=== PATIENT | male | born 2000 | race Caucasian/White ===

== ENCOUNTER 2020-06-01 20:33 | Emergency (ER) | payer SELFPAY ==
[2020-06-01 20:34] VITALS: BP 136/72; PULSE 101; RESP 16; TEMP 36.8; O2SAT 100; BMI 28.3
--- NOTE | 2020-06-01 20:46 | ECG_ITS ---
APPROVED REPORT Exam: Resting ECG HR:109 bpm ECG Measurements Heart Rate 109 AXES UT 134 P 54 QRSd 94 QRS 40 QT 322 T 59 QTc 433 Conclusion Sinus tachycardia RSR' or QR pattern in V1 suggests right ventricular conduction delay Borderline ECG Electronically signed by : Juan Manuel Car, 06/02/2020 19:55:10
--- NOTE | 2020-06-01 20:46 | XR_ITS ---
PROCEDURE: XR CHEST 2V CLINICAL HISTORY: chest pain COMPARISON: No exams were available for comparison FINDINGS: The cardiomediastinal silhouette and pulmonary vascularity are within normal limits. The lungs are clear without infiltrates, suspicious nodules, or pleural effusions. No acute bony abnormalities. IMPRESSION: No acute findings. Dictated by: Richi Kenney MD 06/02/2020 05:52 Richi Kenney MD in [place] 06/02/2020 05:52
[2020-06-01 20:54] LABS: Basophils # 0.1 K/mm3 (0-0.2); Basophils % 0.3 % (0.1-2.0); Eosinophils # 0.1 K/mm3 (0.0-0.4); Eosinophils % 0.6 % (0.1-12.0); Hematocrit 47.1 % (42.0-52.0); Hemoglobin 15.7 g/dL (14.1-18.0); Lymphocytes # 2.5 K/mm3 (0.7-4.5); Lymphocytes % 14.4 % (10-50); Mean Corpuscular HGB Conc 33.2 g/dL (31.8-35.4); Mean Corpuscular Hemoglobin 30.7 pg (27.0-31.2); Mean Corpuscular Volume 92.6 fl (80-94); Mean Platelet Volume 8.4 fl (7.4-10.4); Monocytes # 0.9 K/mm3 (0.1-1.0); Neutrophils % 79.7 % (37.0-80.0); Platelet Count 179 K/mm3 (142-424); Red Blood Count 5.09 M/mm3 (4.60-6.20); Red Cell Distribution Width 12.1 % (11.5-17.5); White Blood Count 17.5 K/mm3 (4.5-13.0)
[2020-06-01 21:06] LABS: MANUAL DIFFERENTIAL MANUAL DIFFERENTIAL (MANUAL DIFF)
[2020-06-01 21:14] VITALS: BP 150/64; PULSE 91; RESP 16; O2SAT 98
[2020-06-01 21:19] LABS: Chloride 103 mmol/L (98-107); Potassium 3.4 mmoL/L (3.5-5.1); Sodium 139 mmol/L (136-145)
[2020-06-01 21:22] LABS: Anion Gap 12.4 mEq/L (5-15); Blood Urea Nitrogen 15 mg/dl (9-20); Calcium 9.8 mg/dl (8.4-10.2); Carbon Dioxide 27 mmol/L (22.0-30.0); Creatinine Clearance Estimated 176 mL/min (50-200); Estimated Glomerular Filt Rate 95 ml/min (>60); GFR (African American) 115 ML/MIN (>60); Glucose 116 mg/dl (74-100)
[2020-06-01 21:39] LABS: Troponin I < 0.01 ng/ml (0.00-0.034)
[2020-06-01 21:57] LABS: Coronavirus 19 IgG Antibody Negative (Negative); Coronavirus 19 IgM Antibody Negative (Negative)
[2020-06-01 22:04] VITALS: BP 129/81; PULSE 89; RESP 16; O2SAT 99
[2020-06-01 22:09] LABS: Lymphocytes % 9 % (10-50); Monocytes % 8 % (2-9); Neutrophils % 83 % (42-76); Platelet Estimate Normal; RBC Morphology Normal; Total Cells Counted 100
--- NOTE | 2020-06-01 22:20 | CT_ITS ---
PROCEDURE: CT ANGIO CHEST CLINCIAL INDICATION: chest pain Left-sided chest pain COMPARISON: No exams were available for comparison TECHNIQUE: IV Contrast: 70ML Isovue 370 Axial images obtained with sagittal and coronal reformats. All CT scans at the facility use one or more dose reduction, viz: automated exposure control, ma/kV adjustment per patient size (including targeted exams where dose is matched to indication, i.e. head), or iterative reconstruction technique. FINDINGS: HEART AND MEDIASTINAL STRUCTURES: No evidence of pulmonary embolus aortic aneurysm or aortic dissection. There is soft tissue density in the anterior mediastinum consistent with residual thymic tissue. LUNGS AND PLEURAL SPACES: There are mild atelectatic changes in the right lung base posteriorly BONY STRUCTURES: No acute bony abnormalities apparent. UPPER ABDOMEN: Borderline splenomegaly at 13 cm. ADDITIONAL FINDINGS: No other significant abnormalities. IMPRESSION: 1. No acute finding. No evidence of aortic aneurysm or pulmonary embolus. 2. Minimal right basilar atelectasis. 3. Mildly prominent bilateral axillary lymph nodes nonspecific Dictated by: Richi Kenney MD 06/02/2020 06:14 Richi Kenney MD in [facility] 06/02/2020 06:14
--- NOTE | 2020-06-01 22:24 | HMH.EDCP ---
ED Disposition Clinical Impression: Atypical chest pain Acute bronchitis Qualifiers: Bronchitis organism: unspecified organism Qualified Code(s): J20.9 - Acute bronchitis, unspecified Disposition: Home, Self-Care Condition on Discharge: Good Instructions: DI for Atypical Chest Pain Additional Instructions: fluids and see pcp for follow up Prescriptions: levoFLOXacin [Levaquin 500mg tab] 500 mg PO DAILY #7 tab Transmission Status: Pending to [facility] # predniSONE [Prednisone 20mg Tab] 20 mg PO BID #10 tab Transmission Status: Pending to [facility] # Referrals: Juan Manuel Car MD [Primary Care Provider] - - Critical Care Critical Care Time: No Attestation: On 06/01/20, the high probability of a clinically significant, sudden or life threatening deterioration of the following system(s) required my full and direct attention, intervention and personal management. The time I documented below is in addition to time spent performing reported procedures but includes the following listed in this critical care notation. Medical Decision Making - Medical Records Medical records reviewed: Yes: I reviewed the patient's medical records. - Ozzy Inquiry Pt receiving controlled substance: No Vital Signs: 06/01/20 20:34 06/01/20 21:14 06/01/20 22:04 Temperature 98.2 F Temperature Source Oral Pulse Rate [Left Radial] 101 H 91 H 89 Respiratory Rate 16 16 16 Blood Pressure [Right Arm] 136/72 150/64 H 129/81 Blood Pressure Mean [Right Arm] 93 92 97 Blood Pressure Source [Right Arm] Automatic Cuff Automatic Cuff Automatic Cuff Blood Pressure Position [Right Arm] Sitting Sitting Sitting 02 Sat by Pulse Oximetry 100 98 99 Oxygen Delivery Method Room Air Room Air Room Air 06/01/20 22:30 06/01/20 23:30 Temperature Temperature Source Pulse Rate [Left Radial] 87 86 Respiratory Rate 17 16 Blood Pressure [Right Arm] 125/63 137/70 Blood Pressure Mean [Right Arm] 83 92 Blood Pressure Source [Right Arm] Automatic Cuff Automatic Cuff Blood Pressure Position [Right Arm] Sitting Sitting 02 Sat by Pulse Oximetry 94 L 95 Oxygen Delivery Method Room Air Room Air - Lab Data Lab results reviewed: Yes: I reviewed the patient's lab results. Lab Results 06/01/20 20:38: WBC 17.5 H, RBC 5.09, Hgb 15.7, Hct 47.1, MCV 92.6, MCH 30.7, MCHC 33.2, RDW 12.1, Plt Count 179, MPV 8.4, Neut % (Auto) 79.7, Lymph % (Auto) 14.4, [place] % (Auto) 5.0, Eos % (Auto) 0.6, Baso % (Auto) 0.3, Neut # (Auto) 14.0 H, Lymph # (Auto) 2.5, [place] # (Auto) 0.9, Eos # (Auto) 0.1, Baso # (Auto) 0.1, Total Counted 100, Neutrophils % (Manual) 83 H, Lymphocytes % (Manual) 9 L, Monocytes % (Manual) 8, Platelet Estimate Normal, RBC Morphology Normal 06/01/20 20:38: Sodium 139, Potassium 3.4 L, Chloride 103, Carbon Dioxide 27, Anion Gap 12.4, BUN 15, Creatinine 1.00, Estimated Creat Clear 176, Estimated GFR 95, Est GFR ( Amer) 115, Glucose 116 H, Calcium 9.8, Troponin I < 0.01 06/01/20 20:38: SARS-CoV-2 IgG Ab (Rapid) Negative, SARS-CoV-2 IgM Ab (Rapid) Negative Result diagrams: 06/01/20 20:38 06/01/20 20:38 Orders (Tests/Meds): ED MEDICATIONS Generic Name Dose Route Start Last Admin Trade Name Freq PRN Reason Stop Dose Admin Sodium Chloride 1,000 mls @ 999 mls/hr 06/01/20 21:00 06/01/20 20:51 Sod Chlor 0.9% 1000ml Bag IV 06/01/20 22:00 999 mls/hr .Q1H1M ARI Administration Discontinued Medications Generic Name Dose Route Start Last Admin Trade Name Freq PRN Reason Stop Dose Admin Aspirin 324 mg 06/01/20 20:47 06/01/20 20:51 Aspirin 81mg Chewable Tablet PO 06/01/20 20:48 324 mg ONCE ONE Administration Iopamidol 70 ml 06/01/20 23:59 06/02/20 00:00 Iopamidol-370 (76%);100ml Bottle IV 06/02/20 00:00 70 ml ONCE ONE Administration Ketorolac Tromethamine 30 mg 06/01/20 20:47 06/01/20 20:51 Ketorolac 30mg/Ml Vial IV 06/01/20 20:48 30 mg ONCE ONE Administratio
[2020-06-01 22:30] VITALS: BP 125/63; PULSE 87; RESP 17; O2SAT 94
[2020-06-01 23:30] VITALS: BP 137/70; PULSE 86; RESP 16; O2SAT 95
[2020-06-02 00:29] VITALS: BP 131/82; PULSE 81; RESP 16; TEMP 36.8; O2SAT 98
[2020-06-02 01:08] LABS: Microscopic, Urine URINE MICROSCOPIC (MICROSCOPIC)
[2020-06-02 01:49] LABS: Appearance,Urine CLEAR (Clear); Bilirubin,Urine Negative (Negative); Blood, Urine Negative (Negative); Color,Urine YELLOW (Yellow); Glucose,Urine (UA) Negative (Negative); Ketones,Urine Negative (Negative); Leukocyte Esterase,Urine Negative (Negative); Nitrate,Urine Negative (Negative); Protein,Urine Negative (Negative); Specific Gravity, Urine >= 1.030 (1.005-1.030); Urobilinogen,Urine 0.2 EU/dl (0.2)
[2020-06-02 01:51] LABS: Barbiturates Screen,Urine Negative ng/ml (<200)
[2020-06-02 01:52] LABS: Benzodiazepines Screen,Urine Negative ng/ml (<200)
[2020-06-02 01:53] LABS: Amphetamine/Metha Screen,Urine Negative ng/ml (<1000); Cocaine Screen,Urine Negative ng/ml (<300)
[2020-06-02 01:54] LABS: Methadone Screen,Urine Negative ng/ml (<300)
[2020-06-02 01:55] LABS: Cannabinoid Screen,Urine Negative ng/ml (<50); Opiate Screen,Urine Negative ng/ml (<300)
[2020-06-02 01:56] LABS: Phencyclidine Screen,Urine Negative ng/ml (<25)
[2020-06-02 02:25] LABS: Bacteria,Urine 1+ /lpf
== END 2020-06-02 00:35 | disposition home or self-care (01) ==
PROVIDERS: Emergency Provider Emergency Medicine; PCP Internal Medicine Adolescent Medicine
DX: Z20.828 Contact with and (suspected) exposure to other viral communicable diseases (principal); J20.9 Acute bronchitis, unspecified
CPT/HCPCS: 71046; 71275; 80048; 80305; 81001; 84484; 85007; 85025; 86328; 93005; 96365; 96375; 99284; J2405; Q9967; U0003

== ENCOUNTER → 2020-10-28 11:28 | Outpatient (CLI) | payer BC, OTHER, SELFPAY ==
[2020-10-28 13:18] LABS: Coronavirus 19 IgG Antibody Negative (Negative); Coronavirus 19 IgM Antibody Negative (Negative)
== END ==
PROVIDERS: Visit Provider Surgery
DX: Z01.812 Encounter for preprocedural laboratory examination (principal)
CPT/HCPCS: 36415; 86328

== ENCOUNTER 2020-10-29 05:56 | Day surgery (SDC) | payer BC, OTHER, SELFPAY ==
[2020-10-25 08:18] VITALS: BMI 28.5
[2020-10-29] VITALS (10 sets, daily range): BP systolic 131–149; BP diastolic 64–84; PULSE 53–85; RESP 14–20; TEMP 36.4–43; O2SAT 95–98
--- NOTE | 2020-10-29 07:43 | HMH.ANESCL ---
[facility] Anesthesia Checklist - Patient Identification Patient Identification: Arm Band - Structural Data Admitted From: Home Planned Operative Procedure/s: I&D Pilonidal Cyst Consent for Planned Operative Procedure(s) Verified: Yes Verified Documents: Surgical Consent, History and Physical - NPO Status Verified Time NPO: 00:00 - Additional verifications Anesthesia Reactions: No Hx Blood Transfusions: No Blood Transfusion Reaction: No - Airway Assessment C-Spine Mobility Assessed: Yes (mp2) TMJ Mobility Assessed: Yes Dentition: Good Dentition - Neurological Assessment Level of Consciousness: Awake, Alert - Anesthesia Plan Anesthesia Risk discussed: Yes Anesthesia Plan: Verified ASA Class: II Anesthesia Type: General [facility] History I have reviewed the patient's past medical history: Yes Medical History: Denies:: Cancer, Diabetes Mellitus Type 1, Diabetes Mellitus Type 2, Internal Pacemaker, MRSA, Seizures *Have you ever received a pneumonia vaccine?: Yes *Have you received a flu vaccine this season?: No Other Medical History: Denies: Blood Transfusion Reaction Anesthesia experience/problems:: nac Laterality Cases: Bilateral: Myringotomy (Ear Tubes) Other Surgeries: Yes: No Previous Surgery. No: Pacemaker Amputation: No - *Social History Last grade of school completed: High school graduate Smoking Status: Current every day smoker Tobacco Type: cigarettes # Packs/Day (cigarettes): 1 Alcohol Intake: never Substance Use Type: denies use *Occupational Status:: employed Housing: house Household Members: family *Travel in the last 8 weeks: None Family Hx:: Non-contributory
--- NOTE | 2020-10-29 08:05 | P.OP_ITS ---
Date of procedure: 10/29/20 Pre-op Diagnosis:: Pilonidal cyst Post-op Diagnosis:: Same Procedure performed:: Incision with debridement of pilonidal cyst Surgeon:: Bob Crowell MD USED [employer] MAKE [employer]Y MECHANIC:: Kenneth Coto Anesthesia: GETA Estimated blood loss (mL): 15 Clinical Note:: Patient is a 20-year-old male from [place] who is referred by Peace Henao for pilonidal cyst. Patient has had some problems for 1 to 2 years but he is not sure. He has occasional discharge of pinkish somewhat blood-tinged fluid from the gluteal cleft. No significant tenderness. He does occasionally squeeze the area. Operative findings:: There were several pilonidal sinus openings. The underlying disease did track significantly superiorly. There was underlying purulent granulation tissue with debris and hair present. Operative note:: Patient was taken to the operating room. He was positioned in a supine position. General anesthesia was induced. He was then repositioned in prone jackknife position. The area was prepped and draped in the standard surgical fashion. One of the larger sinus openings which seems to have had some drainage at the inferior portion of the multiple pilonidal sinus openings was probed with a blunt probe. This did track quite a distance superiorly. The overlying skin was incised with electrocautery. There was underlying purulent granulation tissue and debris with hair present. This was debrided with a small curette. To allow for full debridement of the affected tissue the incision was opened more cranially. Additional debris and purulent granulation tissue was encountered. This was debrided. Debrided tissue was sent as specimen. Once the wound was opened and any underlying infected pilonidal tissue debris was removed the wound was thoroughly irrigated with saline. Local anesthetic was infiltrated. The wound was packed with a saline moistened gauze and covered wit h clean dry sterile dressing. Please note the overall size of the wound measured approximately 7 cm long by 3 cm wide and 2 cm in depth. Condition: stable Disposition: PACU Specimens:: Debrided pilonidal tissue Complications:: None immediately apparent
--- NOTE | 2020-10-29 08:09 | HMH.ANESI ---
[facility] Anesthesia Record Part I Intake, IV Amount: 900 Estimated blood loss (mL): 10 Urine output (mL): 0 Blood Pressure: 136/66 SaO2: 95 Pulse Rate: 85 Respiratory Rate: 16 Temperature: 97.6 F Patient is:: Drowsy, Stable Stable to PACU at:: 08:00
--- NOTE | 2020-10-29 12:51 | P.PN_ITS ---
[facility] Anesthesia Record Part II Discharge Time: 08:30 Destination: Surgical Day Care (OP Surgery) PACU nurse assessment reviewed?: Yes Patient Condition:: Good Anesthesia Complications:: None Swallowing reflex intact?: Yes Cyanosis?: No Blood Pressure: 146/82 Pulse Rate: 67 Temperature: 97.6 F Mental Status: Alert & Oriented Pain level:: 0 Nausea and/or vomitting:: None Intake, IV Amount: 0
== END 2020-10-29 09:02 | disposition home or self-care (01) ==
LOC: OR 05:57
PROVIDERS: PCP Nurse Practitioner Family; Visit Provider Surgery
PROC: (CPT 10080; principal; 2020-10-29 07:30)
DX: L05.91 Pilonidal cyst without abscess (principal)
CPT/HCPCS: 10080; 96374; J2405

== ENCOUNTER 2020-10-30 09:05 | Outpatient (CLI) | payer BC, OTHER, SELFPAY | END 2020-10-30 20:35 | disposition home or self-care (01) | LOC: INF 09:23 | PROVIDERS: Visit Provider Surgery | DX: L05.01 Pilonidal cyst with abscess (principal); Z48.01 Encounter for change or removal of surgical wound dressing | CPT/HCPCS: G0463 ==

== ENCOUNTER → 2020-10-30 20:16 | Outpatient (CLI) | payer BC, OTHER, SELFPAY | PROVIDERS: PCP Nurse Practitioner Family; Visit Provider Surgery | DX: L05.01 Pilonidal cyst with abscess (principal); Z48.01 Encounter for change or removal of surgical wound dressing ==

== ENCOUNTER 2020-10-31 08:45 | Outpatient (CLI) | payer BC, OTHER, SELFPAY ==
[2020-10-31 20:29] VITALS: BP 115/62; PULSE 98; RESP 17; TEMP 37.1; O2SAT 95
[2020-10-31 20:49] VITALS: BP 115/62; PULSE 98; RESP 17; TEMP 37.1; O2SAT 95
== END 2020-10-31 20:49 | disposition home or self-care (01) ==
LOC: INF 08:58
PROVIDERS: PCP Nurse Practitioner Family; Visit Provider Surgery
DX: L05.01 Pilonidal cyst with abscess (principal); Z48.01 Encounter for change or removal of surgical wound dressing
CPT/HCPCS: G0463

== ENCOUNTER → 2020-10-31 20:20 | Outpatient (CLI) | payer BC, OTHER, SELFPAY | PROVIDERS: PCP Nurse Practitioner Family; Visit Provider Surgery | DX: L05.01 Pilonidal cyst with abscess (principal) ==

== ENCOUNTER 2020-11-01 09:00 | Outpatient (CLI) | payer BC, OTHER, SELFPAY | END 2020-11-01 20:00 | disposition home or self-care (01) | LOC: INF 16:11 | PROVIDERS: PCP Nurse Practitioner Family; Visit Provider Surgery | DX: L05.01 Pilonidal cyst with abscess (principal); Z48.01 Encounter for change or removal of surgical wound dressing | CPT/HCPCS: G0463 ==

== ENCOUNTER 2020-11-02 08:53 | Outpatient (CLI) | payer BC, OTHER, SELFPAY ==
[2020-11-02 11:10] VITALS: BP 130/68; PULSE 66; RESP 18; O2SAT 97
[2020-11-02 20:28] VITALS: BP 117/49; PULSE 105; RESP 18; TEMP 36.9; O2SAT 97
[2020-11-02 20:48] VITALS: BP 117/49; PULSE 105; RESP 18; TEMP 36.9; O2SAT 97
== END 2020-11-02 20:48 | disposition home or self-care (01) ==
PROVIDERS: PCP Nurse Practitioner Family; Visit Provider Surgery
DX: L05.01 Pilonidal cyst with abscess (principal); Z48.01 Encounter for change or removal of surgical wound dressing
CPT/HCPCS: G0463

== ENCOUNTER 2020-11-05 09:20 | Outpatient (CLI) | payer BC, OTHER, SELFPAY | END 2020-11-05 09:28 | disposition home or self-care (01) | LOC: INF 09:26 | PROVIDERS: Visit Provider Surgery | DX: L05.01 Pilonidal cyst with abscess (principal); Z48.01 Encounter for change or removal of surgical wound dressing | CPT/HCPCS: G0463 ==

== ENCOUNTER 2020-11-06 09:02 | Outpatient (CLI) | payer BC, OTHER, SELFPAY | END 2020-11-06 09:15 | disposition home or self-care (01) | LOC: INF 09:02 | PROVIDERS: PCP Nurse Practitioner Family; Visit Provider Surgery | DX: L05.01 Pilonidal cyst with abscess (principal); Z48.01 Encounter for change or removal of surgical wound dressing | CPT/HCPCS: G0463 ==

== ENCOUNTER 2020-11-07 08:00 | Outpatient (CLI) | payer BC, OTHER, SELFPAY | END 2020-11-07 09:00 | disposition home or self-care (01) | LOC: INF 08:42 | PROVIDERS: Visit Provider Surgery | DX: L05.01 Pilonidal cyst with abscess (principal); Z48.01 Encounter for change or removal of surgical wound dressing | CPT/HCPCS: G0463 ==

== ENCOUNTER 2020-11-08 09:10 | Outpatient (CLI) | payer BC, OTHER, SELFPAY | END 2020-11-08 09:25 | disposition home or self-care (01) | LOC: INF 09:11 | PROVIDERS: Visit Provider Surgery | DX: L05.01 Pilonidal cyst with abscess (principal) | CPT/HCPCS: G0463 ==

== ENCOUNTER → 2020-11-09 10:40 | Outpatient (CLI) | payer BC, OTHER, SELFPAY ==
[2020-11-09 11:59] VITALS: BP 110/45; PULSE 91; RESP 18; TEMP 36.8; O2SAT 99; BMI 28.4
== END ==
PROVIDERS: PCP Nurse Practitioner Family; Visit Provider Surgery
DX: L05.01 Pilonidal cyst with abscess (principal); Z48.01 Encounter for change or removal of surgical wound dressing
CPT/HCPCS: G0463

== ENCOUNTER 2020-11-10 07:57 | Outpatient (CLI) | payer BC, OTHER, SELFPAY ==
[2020-11-10 08:10] VITALS: BP 136/72; PULSE 86; RESP 18; TEMP 37; O2SAT 98
--- NOTE | 2020-11-10 08:20 | PC.NURSE ---
pt prone in bed during dressing change. old packing wet with saline then removed. wound bed irrigated with saline then new wet kerlix was inserted into wound. covered with abd pad and perforated tape. pt tolerated well.
== END 2020-11-10 08:35 | disposition home or self-care (01) ==
PROVIDERS: PCP Nurse Practitioner Family; Visit Provider Surgery
DX: L05.01 Pilonidal cyst with abscess (principal); Z48.01 Encounter for change or removal of surgical wound dressing
CPT/HCPCS: G0463

== ENCOUNTER → 2020-11-12 10:50 | Outpatient (CLI) | payer BC, OTHER, SELFPAY | END | disposition home or self-care (01) | LOC: INF 10:50 | PROVIDERS: Visit Provider Surgery | DX: L05.01 Pilonidal cyst with abscess (principal); Z48.01 Encounter for change or removal of surgical wound dressing | CPT/HCPCS: G0463 ==

== ENCOUNTER 2020-11-13 10:30 | Outpatient (CLI) | payer BC, OTHER, SELFPAY | END 2020-11-13 10:45 | disposition home or self-care (01) | LOC: INF 16:09 | PROVIDERS: Visit Provider Surgery | DX: L05.01 Pilonidal cyst with abscess (principal); Z48.01 Encounter for change or removal of surgical wound dressing | CPT/HCPCS: G0463 ==

== ENCOUNTER 2020-11-14 08:30 | Outpatient (CLI) | payer BC, OTHER, SELFPAY | END 2020-11-14 08:45 | disposition home or self-care (01) | LOC: INF 08:47 | PROVIDERS: Visit Provider Surgery | DX: L05.01 Pilonidal cyst with abscess (principal); Z48.01 Encounter for change or removal of surgical wound dressing | CPT/HCPCS: G0463 ==

== ENCOUNTER 2020-11-15 08:40 | Outpatient (CLI) | payer BC, OTHER, SELFPAY | END 2020-11-15 09:20 | disposition home or self-care (01) | LOC: INF 08:49 | PROVIDERS: Visit Provider Surgery | DX: L05.01 Pilonidal cyst with abscess (principal); Z48.01 Encounter for change or removal of surgical wound dressing | CPT/HCPCS: G0463 ==

== ENCOUNTER → 2020-11-16 10:21 | Outpatient (CLI) | payer BC, OTHER, SELFPAY ==
[2020-11-16 11:14] VITALS: BP 130/71; PULSE 96; RESP 18; TEMP 36.9; O2SAT 97
== END ==
PROVIDERS: PCP Nurse Practitioner Family; Visit Provider Surgery
DX: L05.01 Pilonidal cyst with abscess (principal); Z48.01 Encounter for change or removal of surgical wound dressing
CPT/HCPCS: G0463

== ENCOUNTER → 2020-11-17 09:37 | Outpatient (CLI) | payer BC, OTHER, SELFPAY ==
[2020-11-17 09:55] VITALS: BP 116/54; PULSE 74; RESP 20; TEMP 36.9; O2SAT 96
== END ==
PROVIDERS: PCP Nurse Practitioner Family; Visit Provider Surgery
DX: L05.01 Pilonidal cyst with abscess (principal); Z48.01 Encounter for change or removal of surgical wound dressing
CPT/HCPCS: G0463

== ENCOUNTER 2020-11-19 08:10 | Outpatient (CLI) | payer BC, OTHER, SELFPAY | END 2020-11-19 08:25 | disposition home or self-care (01) | LOC: INF 08:25 | PROVIDERS: Visit Provider Surgery | DX: L05.01 Pilonidal cyst with abscess (principal); Z48.01 Encounter for change or removal of surgical wound dressing | CPT/HCPCS: G0463 ==

== ENCOUNTER 2020-11-20 12:00 | Outpatient (CLI) | payer BC, OTHER, SELFPAY | END 2020-11-20 12:20 | disposition home or self-care (01) | LOC: INF 15:59 | PROVIDERS: Visit Provider Surgery | DX: L05.01 Pilonidal cyst with abscess (principal); Z48.01 Encounter for change or removal of surgical wound dressing | CPT/HCPCS: G0463 ==

== ENCOUNTER 2020-11-21 09:12 | Outpatient (CLI) | payer BC, OTHER, SELFPAY | END 2020-11-21 09:23 | disposition home or self-care (01) | LOC: INF 09:13 | PROVIDERS: Visit Provider Surgery | DX: L05.01 Pilonidal cyst with abscess (principal); Z48.01 Encounter for change or removal of surgical wound dressing | CPT/HCPCS: G0463 ==

== ENCOUNTER 2020-11-22 08:40 | Outpatient (CLI) | payer BC, OTHER, SELFPAY | END 2020-11-22 08:55 | disposition home or self-care (01) | LOC: INF 11:38 | PROVIDERS: Visit Provider Surgery | DX: L05.01 Pilonidal cyst with abscess (principal); Z48.01 Encounter for change or removal of surgical wound dressing | CPT/HCPCS: G0463 ==

== ENCOUNTER 2020-11-23 10:38 | Outpatient (CLI) | payer BC, OTHER, SELFPAY ==
[2020-11-23 10:46] VITALS: BP 143/76; PULSE 87; RESP 16; O2SAT 96
== END 2020-11-23 11:02 | disposition home or self-care (01) ==
LOC: INF 10:39
PROVIDERS: PCP Nurse Practitioner Family; Visit Provider Surgery
DX: L05.01 Pilonidal cyst with abscess (principal); Z48.01 Encounter for change or removal of surgical wound dressing
CPT/HCPCS: G0463

== ENCOUNTER 2020-11-24 09:39 | Outpatient (CLI) | payer BC, OTHER, SELFPAY ==
[2020-11-24 10:15] VITALS: BP 122/71; PULSE 89; RESP 16; O2SAT 97
== END 2020-11-24 10:05 | disposition home or self-care (01) ==
LOC: INF 09:40
PROVIDERS: PCP Nurse Practitioner Family; Visit Provider Surgery
DX: L05.01 Pilonidal cyst with abscess (principal); Z48.01 Encounter for change or removal of surgical wound dressing
CPT/HCPCS: G0463

== ENCOUNTER 2020-11-25 09:43 | Outpatient (CLI) | payer BC, OTHER, SELFPAY ==
--- NOTE | 2020-11-25 10:54 | PC.NURSE ---
1000: OLD DRESSING REMOVED. BLOODY DRAINAGE NOTED ON DRESSING. CLEANSED SITE WITH NS. WOUND BED RED AND BEEFY. SALINE SOAKED KERLIX PACKED TO SITE. DRY STERILE 4X4'S PLACED OVER PACKED AREA. TAPED WITH MEDIPORE TAPE. PATIENT TOLERATED DRESSING CHANGE WELL. PATIENT RATES PAIN 0.
== END 2020-11-25 10:15 | disposition home or self-care (01) ==
LOC: INF 09:43
PROVIDERS: PCP Nurse Practitioner Family; Visit Provider Surgery
DX: L05.01 Pilonidal cyst with abscess (principal); Z48.01 Encounter for change or removal of surgical wound dressing
CPT/HCPCS: G0463

== ENCOUNTER 2020-11-26 10:55 | Outpatient (CLI) | payer BC, OTHER, SELFPAY | END 2020-11-26 11:05 | disposition home or self-care (01) | LOC: INF 10:56 | PROVIDERS: Visit Provider Surgery | DX: L05.01 Pilonidal cyst with abscess (principal); Z48.01 Encounter for change or removal of surgical wound dressing | CPT/HCPCS: G0463 ==

== ENCOUNTER 2020-11-27 15:10 | Outpatient (CLI) | payer BC, OTHER, SELFPAY | END 2020-11-27 15:23 | disposition home or self-care (01) | LOC: INF 15:13 | PROVIDERS: Visit Provider Surgery | DX: L05.01 Pilonidal cyst with abscess (principal); Z48.01 Encounter for change or removal of surgical wound dressing | CPT/HCPCS: G0463 ==

== ENCOUNTER 2020-11-28 08:35 | Outpatient (CLI) | payer BC, OTHER, SELFPAY | END 2020-11-28 08:45 | disposition home or self-care (01) | LOC: INF 08:35 | PROVIDERS: Visit Provider Surgery | DX: L05.01 Pilonidal cyst with abscess (principal); Z48.01 Encounter for change or removal of surgical wound dressing | CPT/HCPCS: G0463 ==

== ENCOUNTER → 2020-11-30 09:50 | Outpatient (CLI) | payer BC, OTHER, SELFPAY ==
[2020-11-30 10:13] VITALS: BP 118/66; PULSE 101; RESP 20; TEMP 37; O2SAT 98
== END ==
PROVIDERS: PCP Nurse Practitioner Family; Visit Provider Surgery
DX: L05.01 Pilonidal cyst with abscess (principal); Z48.01 Encounter for change or removal of surgical wound dressing
CPT/HCPCS: G0463

== ENCOUNTER 2020-12-01 11:21 | Outpatient (CLI) | payer BC, OTHER, SELFPAY ==
[2020-12-01 11:21] VITALS: BP 124/76; PULSE 75; RESP 18; TEMP 36.7; O2SAT 97
== END 2020-12-01 12:00 | disposition home or self-care (01) ==
PROVIDERS: PCP Nurse Practitioner Family; Visit Provider Surgery
DX: L05.01 Pilonidal cyst with abscess (principal); Z48.01 Encounter for change or removal of surgical wound dressing
CPT/HCPCS: G0463

== ENCOUNTER 2020-12-02 09:38 | Outpatient (CLI) | payer BC, OTHER, SELFPAY | END 2020-12-02 09:45 | disposition home or self-care (01) | LOC: INF 09:38 | PROVIDERS: Visit Provider Surgery | DX: L05.01 Pilonidal cyst with abscess (principal); Z48.01 Encounter for change or removal of surgical wound dressing | CPT/HCPCS: G0463 ==

== ENCOUNTER 2020-12-03 09:44 | Outpatient (CLI) | payer BC, OTHER, SELFPAY | END 2020-12-03 09:55 | disposition home or self-care (01) | LOC: INF 09:44 | PROVIDERS: Visit Provider Surgery | DX: L05.01 Pilonidal cyst with abscess (principal); Z48.01 Encounter for change or removal of surgical wound dressing | CPT/HCPCS: G0463 ==

== ENCOUNTER 2020-12-04 10:00 | Outpatient (CLI) | payer BC, OTHER, SELFPAY | END 2020-12-04 10:15 | disposition home or self-care (01) | LOC: INF 10:00 | PROVIDERS: Visit Provider Surgery | DX: L05.01 Pilonidal cyst with abscess (principal); Z48.01 Encounter for change or removal of surgical wound dressing | CPT/HCPCS: G0463 ==

== ENCOUNTER 2020-12-05 09:20 | Outpatient (CLI) | payer BC, OTHER, SELFPAY ==
[2020-12-05 09:39] VITALS: BP 131/86; PULSE 87; RESP 17; TEMP 36.8; O2SAT 97
== END 2020-12-05 09:41 | disposition home or self-care (01) ==
LOC: INF 09:25
PROVIDERS: Visit Provider Surgery
DX: L05.91 Pilonidal cyst without abscess (principal)
CPT/HCPCS: G0463

== ENCOUNTER 2020-12-06 08:45 | Outpatient (CLI) | payer BC, OTHER, SELFPAY ==
[2020-12-06 08:56] VITALS: BP 127/85; PULSE 77; RESP 17; TEMP 36.7; O2SAT 98
== END 2020-12-06 08:58 | disposition home or self-care (01) ==
LOC: INF 08:46
PROVIDERS: Visit Provider Surgery
DX: L05.01 Pilonidal cyst with abscess (principal); Z48.01 Encounter for change or removal of surgical wound dressing
CPT/HCPCS: G0463

== ENCOUNTER → 2020-12-07 07:11 | Outpatient (CLI) | payer BC, OTHER, SELFPAY ==
[2020-12-07 08:00] VITALS: BP 118/61; PULSE 76; RESP 18; TEMP 36.9; O2SAT 99
== END ==
PROVIDERS: PCP Nurse Practitioner Family; Visit Provider Surgery
DX: L05.01 Pilonidal cyst with abscess (principal); Z48.01 Encounter for change or removal of surgical wound dressing
CPT/HCPCS: G0463

== ENCOUNTER → 2020-12-08 08:07 | Outpatient (CLI) | payer BC, OTHER, SELFPAY ==
[2020-12-08 08:28] VITALS: BP 144/89; PULSE 85; RESP 16; TEMP 36.9; O2SAT 97
== END ==
PROVIDERS: PCP Nurse Practitioner Family; Visit Provider Surgery
DX: L05.01 Pilonidal cyst with abscess (principal); Z48.01 Encounter for change or removal of surgical wound dressing
CPT/HCPCS: G0463

== ENCOUNTER 2020-12-10 08:22 | Outpatient (CLI) | payer BC, OTHER, SELFPAY | END 2020-12-10 08:32 | disposition home or self-care (01) | LOC: INF 08:23 | PROVIDERS: Visit Provider Surgery | DX: L05.01 Pilonidal cyst with abscess (principal); Z48.01 Encounter for change or removal of surgical wound dressing | CPT/HCPCS: G0463 ==

== ENCOUNTER 2020-12-11 10:16 | Outpatient (CLI) | payer BC, OTHER, SELFPAY | END 2020-12-11 10:26 | disposition home or self-care (01) | LOC: INF 10:16 | PROVIDERS: Visit Provider Surgery | DX: L05.01 Pilonidal cyst with abscess (principal); Z48.01 Encounter for change or removal of surgical wound dressing | CPT/HCPCS: G0463 ==

== ENCOUNTER 2020-12-15 10:45 | Outpatient (CLI) | payer BC, OTHER, SELFPAY ==
[2020-12-15 11:00] VITALS: BP 126/68; PULSE 68; RESP 18; O2SAT 93
== END 2020-12-15 11:15 | disposition home or self-care (01) ==
LOC: INF 10:45
PROVIDERS: PCP Nurse Practitioner Family; Visit Provider Surgery
DX: L05.01 Pilonidal cyst with abscess (principal); Z48.01 Encounter for change or removal of surgical wound dressing
CPT/HCPCS: G0463

== ENCOUNTER 2020-12-16 17:32 | Outpatient (CLI) | payer BC, OTHER, SELFPAY ==
--- NOTE | 2020-12-16 19:14 | PC.NURSE ---
1802: old dressing removed. site cleansed with NS. saline soaked 2X2 placed in wound bed. 4x4 placed over packing and taped with medipore tape. patient tolerated procedure well.
== END 2020-12-16 18:10 | disposition home or self-care (01) ==
LOC: INF 17:34
PROVIDERS: PCP Nurse Practitioner Family; Visit Provider Surgery
DX: L05.01 Pilonidal cyst with abscess (principal); Z48.01 Encounter for change or removal of surgical wound dressing
CPT/HCPCS: G0463

== ENCOUNTER 2020-12-17 12:25 | Outpatient (CLI) | payer BC, OTHER, SELFPAY | END 2020-12-17 12:32 | disposition home or self-care (01) | LOC: INF 12:32 | PROVIDERS: Visit Provider Surgery | DX: L05.01 Pilonidal cyst with abscess (principal); Z48.01 Encounter for change or removal of surgical wound dressing | CPT/HCPCS: G0463 ==

== ENCOUNTER 2021-03-10 18:25 | Emergency (ER) | payer BC, OTHER, SELFPAY ==
[2021-03-10 19:40] VITALS: BP 120/78; PULSE 77; RESP 18; TEMP 36.8; O2SAT 98; BMI 30.9
--- NOTE | 2021-03-10 20:25 | HMH.EDUTC ---
[facility] [place] Impression: Burning sensation Disposition: Home, Self-Care Condition on Discharge: Good Instructions: DI for Hand Pain Additional Instructions: Try yogurt to make sure that you broke down all the oils from the jalopenos Follow up with Dr Yeager in Neurology if your continued to have burning sensation in hands to rule out nerve issues/damage Follow up with your Family Doctor if no improvement or any worsening of symptoms Return if needed Straight to ER if any life threatening symptoms Referrals: Peace Henao [Primary Care Provider] - Valeria Yeager MD [Staff Physician] - Forms: Work/School Release Time of Disposition: 20:35 Medical Decision Making - Ozzy Inquiry Pt receiving controlled substance: No Ozzy was queried for this patient: No Vital Signs: 03/10/21 19:40 Temperature 98.3 F Temperature Source Oral Pulse Rate [Right Brachial] 77 Respiratory Rate 18 Blood Pressure [Right Arm] 120/78 Blood Pressure Mean [Right Arm] 92 Blood Pressure Source [Right Arm] Automatic Cuff Blood Pressure Position [Right Arm] Sitting 02 Sat by Pulse Oximetry 98 Oxygen Delivery Method Room Air Medical Decision Narrative: Patient state he cut up some jalapeno's States that he stuck his hands in milk and the burning went away but today he started having some burning again so he came in to get them checked [facility] [place] - General Stated complaint: hands burning Time Seen by Provider: 03/10/21 20:25 Mode of Arrival: Ambulatory Source of Information: Patient Limitations: No Limitations Description of Symptoms (Recalled from Triage Doc. by RN): PATIENT STATES BILATERAL HANDS FEEL LIKE THEY ARE ON FIRE/BURNING SINCE WEDNESDAY. STATES SYMPTOMS STARTED AFTER HANDLING JALAPENOS HEENT Symptoms (Recalled from RN notes): No Resp Symptoms (Recalled from RN notes): No Skin Symptoms (Recalled from RN notes): Yes MS Symptoms (Recalled from RN notes): No Functional Status (Recalled from RN notes): WNL - History of Present Illness Provider Complaint: Patient state that he cut up some Jalapenos on Wednesday and the juice got on his hands and he had some burning State that he washed them well and put them in milk and it helped and the burning stopped State that today he went to work and his hands started burning again like they did after handling the jalapenos but he hasnt touched them today so they sent him home and he came in to get checked Denies redness denies swelling states htat hands just burn - Related Data Home Medications Medication Instructions Recorded Confirmed No Known Home Medications 10/25/20 01/31/21 Allergies Allergy/AdvReac Type Severity Reaction Status Date / Time No Known Allergies Allergy Verified 01/31/21 09:38 - Worker's Comp Is this a Worker's Comp case?: No [facility] History - Hepatitis A Screen Drug use history?: No High risk sexual behaviors?: No History of sexually transmitted infection?: No Currently employed?: No Childcare worker?: No Do you have indoor plumbing?: Yes Do you have electricity?: Yes Attestation statement:: This patient has been screened for Hepatitis A risk factors. I have reviewed the patient's past medical history: Yes Medical History: Denies:: Cancer, Diabetes Mellitus Type 1, Diabetes Mellitus Type 2, Internal Pacemaker, MRSA, Seizures Other Medical History: Denies: Blood Transfusion Reaction Laterality Cases: Bilateral: Myringotomy (Ear Tubes) Other Surgeries: Yes: No Previous Surgery, Other. No: Pacemaker Amputation: No - Social History Smoking Status: Current every day smoker Tobacco Type: e-cigarettes # Packs/Day (cigarettes): 1 Alcohol Intake: current Alcohol Intake Frequency:: holidays/special occasions only Substance Use Type: denies use Occupational Status: employed Housing: house Household Members: family Family Hx:: Non-contributory ROS Obtained: Yes All systems reviewed & no additional complaints, Yes Systems reviewed as ap
[2021-03-10 20:42] VITALS: BP 120/78; PULSE 77; RESP 18; TEMP 36.8; O2SAT 98
== END 2021-03-10 20:44 | disposition home or self-care (01) ==
PROVIDERS: Emergency Provider Nurse Practitioner; PCP Nurse Practitioner Family
DX: R20.8 Other disturbances of skin sensation (principal); F17.290 Nicotine dependence, other tobacco product, uncomplicated
CPT/HCPCS: 99202; G0463

== ENCOUNTER 2021-06-22 20:27 | Emergency (ER) | payer BC, OTHER, SELFPAY ==
[2021-06-22 20:28] VITALS: BP 146/91; PULSE 100; RESP 20; TEMP 36.8; O2SAT 95; BMI 30.6
--- NOTE | 2021-06-22 20:38 | XR_ITS ---
PROCEDURE INFORMATION: Exam: XR Right Wrist Exam date and time: 06/22/2021 8:38 PM Age: 21 years old Clinical indication: Injury or trauma; Fall; Blunt trauma (contusions or hematomas); Wrist; Right; Injury date: 06/22/2021 TECHNIQUE: Imaging protocol: XR Right wrist. Views: 3 or more views. COMPARISON: No relevant prior studies available. 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 No acute fracture or dislocation. Soft tissues: Normal. IMPRESSION: No acute findings.
--- NOTE | 2021-06-22 20:38 | XR_ITS ---
PROCEDURE INFORMATION: Exam: XR Right Forearm Exam date and time: 06/22/2021 8:38 PM Age: 21 years old Clinical indication: Injury or trauma; Fall; Blunt trauma (contusions or hematomas); Arm, lower; Right; Injury date: 06/22/2021 TECHNIQUE: Imaging protocol: XR Right forearm. Views: 2 views. 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 No acute fracture or dislocation. Soft tissues: Normal. IMPRESSION: No acute findings.
--- NOTE | 2021-06-22 20:38 | XR_ITS ---
PROCEDURE INFORMATION: Exam: XR Right Hand Exam date and time: 06/22/2021 8:38 PM Age: 21 years old Clinical indication: Injury or trauma; Fall; Blunt trauma (contusions or hematomas); Hand; Right; Injury date: 06/22/2021 TECHNIQUE: Imaging protocol: XR Right hand. Views: 3 or more views. COMPARISON: No relevant prior studies available. 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 No acute fracture or dislocation. Soft tissues: Normal. IMPRESSION: No acute findings.
--- NOTE | 2021-06-22 21:08 | HMH.EDUPEXT ---
ED Disposition Clinical Impression: Right wrist sprain Qualifiers: Encounter type: initial encounter Qualified Code(s): S63.501A - Unspecified sprain of right wrist, initial encounter Sprain of hand, right Qualifiers: Encounter type: initial encounter Qualified Code(s): S63.91XA - Sprain of unspecified part of right wrist and hand, initial encounter Disposition: Home, Self-Care Condition on Discharge: Good Instructions: DI for Wrist Strain Additional Instructions: wear splint and ice and see ortho Prescriptions: Meloxicam [Mobic 15 mg tab] 15 mg PO DAILY #10 tab Transmission Status: Pending to [id number] Referrals: Peace Henao [Primary Care Provider] - Arvind Anderson MD [Staff Physician] - - Critical Care Critical Care Time: No Attestation: On 06/22/21, the high probability of a clinically significant, sudden or life threatening deterioration of the following system(s) required my full and direct attention, intervention and personal management. The time I documented below is in addition to time spent performing reported procedures but includes the following listed in this critical care notation. Medical Decision Making - Medical Records Medical records reviewed: Yes: I reviewed the patient's medical records. - Ozzy Inquiry Pt receiving controlled substance: No Vital Signs: 06/22/21 20:28 Temperature 98.2 F Temperature Source Oral Pulse Rate [Apical] 100 H Respiratory Rate 20 Blood Pressure [Right Arm] 146/91 H Blood Pressure Mean [Right Arm] 109 Blood Pressure Source [Right Arm] Automatic Cuff Blood Pressure Position [Right Arm] Sitting 02 Sat by Pulse Oximetry 95 Oxygen Delivery Method Room Air - Radiology Data #1 Image(s): Forearm, Wrist, Hand Image Reviewed: Yes I have reviewed radiologist's interpretation Preliminary Findings: Abnormal (sts - rad read as neg but has possible area on carpal bone ) Medical Decision Narrative: ice and wear splint and see ortho for follow up Upper Extremity HPI - General Chief Complaint: Extremity Injury, Upper Stated Complaint: [id number] r hand injury Time Seen by Provider: 06/22/21 21:00 Mode of Arrival: Ambulatory Source of Information: Patient, Medical Record Limitations: No Limitations Description of Symptoms (Recalled from ER Triage Doc. by RN): Patient arrives via private vehicle. States that roughly 30 minutes ago he was playing basketball and tripped and fell, cathching himself with his right hand. States that since his fall he has had severe pain in his right hand and wrist. - History of Present Illness HPI narrative: fall with rt hand and wrist injury with pain and dec rom MD complaint: injury to: right, wrist, hand Other Extremity Injury: Right: hand, wrist Other injuries: none Handedness: right Place: home Severity: moderate Context: fall Associated symptoms: denies other symptoms - Related Data Previous Rx's Medication Instructions Recorded Meloxicam [Mobic 15 mg tab] 15 mg PO DAILY #10 tab 06/22/21 Allergies Allergy/AdvReac Type Severity Reaction Status Date / Time No Known Allergies Allergy Verified 01/31/21 09:38 [facility] History - Hepatitis A Screen Drug use history?: No High risk sexual behaviors?: No History of sexually transmitted infection?: No Currently employed?: No Childcare worker?: No Do you have indoor plumbing?: Yes Do you have electricity?: Yes Attestation statement:: This patient has been screened for Hepatitis A risk factors. I have reviewed the patient's past medical history: Yes Medical History: Denies:: Cancer, Diabetes Mellitus Type 1, Diabetes Mellitus Type 2, Internal Pacemaker, MRSA, Seizures Other Medical History: Denies: Blood Transfusion Reaction Laterality Cases: Bilateral: Myringotomy (Ear Tubes) Other Surgeries: Yes: No Previous Surgery, Other. No: Pacemaker Amputation: No - Social History Smoking Status: Current every day smoker Shahidaprimit[employer]
[2021-06-22 21:37] VITALS: BP 127/78; PULSE 75; RESP 20; TEMP 36.6; O2SAT 98
== END 2021-06-22 21:45 | disposition home or self-care (01) ==
PROVIDERS: Emergency Provider Emergency Medicine; PCP Nurse Practitioner Family
DX: S63.501A Unspecified sprain of right wrist, initial encounter (principal); S63.91XA Sprain of unspecified part of right wrist and hand, initial encounter; W01.0XXA Fall on same level from slipping, tripping and stumbling without subsequent striking against object, initial encounter; Y93.67 Activity, basketball; F17.210 Nicotine dependence, cigarettes, uncomplicated
CPT/HCPCS: 73090; 73110; 73130; 99283

== ENCOUNTER 2021-07-14 14:31 | Outpatient (RCR) | payer BC, OTHER, SELFPAY | END 2021-07-14 15:29 | disposition home or self-care (01) | LOC: OT 14:31 | PROVIDERS: PCP Nurse Practitioner Family; Visit Provider Orthopaedic Surgery | DX: S62.101A Fracture of unspecified carpal bone, right wrist, initial encounter for closed fracture (principal) | CPT/HCPCS: 97760 ==

== ENCOUNTER → 2021-08-15 12:43 | Outpatient (CLI) | payer BC, OTHER, SELFPAY ==
--- NOTE | 2021-08-15 12:48 | XR_ITS ---
FINAL REPORT CLINICAL HISTORY: hand injury- wrist fx COMPARISON: June 22, 2021 FINDINGS: RIGHT WRIST Three views demonstrate a chronic fracture of the ulnar styloid process. There is a calcification at the distal aspect of the hamate consistent with a chronic fracture. This finding was present on the prior exam. The visualized joint spaces are normally aligned. The soft tissues are unremarkable. IMPRESSION: Chronic fractures as described. No acute bony abnormality. Reviewed, Interpreted and Dictated by Bob Sadler III, MD Transcribed by Almita Lawrence Authenticated by Bob Sadler III, MD on 08/15/2021 02:28:03 PM [facility]
== END ==
PROVIDERS: PCP Nurse Practitioner Family; Visit Provider Orthopaedic Surgery
DX: S63.91XA Sprain of unspecified part of right wrist and hand, initial encounter (principal)
CPT/HCPCS: 73110

== ENCOUNTER → 2021-08-29 10:25 | Outpatient (CLI) | payer BC, OTHER, SELFPAY ==
--- NOTE | 2021-08-29 10:29 | XR_ITS ---
FINAL REPORT CLINICAL HISTORY: f/u rt wirst injury COMPARISON: 08/15/2021 FINDINGS: RIGHT WRIST Three views demonstrate a presumed chronic fracture of the ulnar styloid process and chronic calcification adjacent to the hamate. Findings are stable. No other fracture or dislocation. IMPRESSION: Chronic fracture as above. Reviewed, Interpreted and Dictated by Bob Sadler III, MD Transcribed by Diane Verduzco Authenticated by Bob Sadler III, MD on 08/29/2021 12:10:02 PM [facility]
--- NOTE | 2021-08-29 10:29 | XR_ITS ---
FINAL REPORT CLINICAL HISTORY: f/u rt hand sprain COMPARISON: 06/22/2021 FINDINGS: RIGHT HAND Three views demonstrate a presumed chronic fracture of the ulnar styloid process and chronic calcification adjacent to the hamate. Findings are stable. No other fracture or dislocation. IMPRESSION: Chronic fracture as above. Reviewed, Interpreted and Dictated by Bob Sadler III, MD Transcribed by Diane Verduzco Authenticated by Bob Sadler III, MD on 08/29/2021 12:10:07 PM [facility]
== END ==
PROVIDERS: PCP Nurse Practitioner Family; Visit Provider Orthopaedic Surgery
DX: S63.501A Unspecified sprain of right wrist, initial encounter (principal); S63.91XA Sprain of unspecified part of right wrist and hand, initial encounter
CPT/HCPCS: 73110; 73130

== ENCOUNTER → 2021-09-11 07:30 | Outpatient (CLI) | payer OTHER, SELFPAY ==
--- NOTE | 2021-09-11 07:38 | MR_ITS ---
FINAL REPORT CLINICAL HISTORY: right hand sprain. chronic ulnar fx. evaluate for tfcc tear. 5th metacarpal base fx. FINDINGS: Multiplanar MR imaging of the right wrist was performed without contrast. 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 There is bone marrow edema in the lunate, triquetrum, hamate, and proximal fifth metacarpal. There is also mild bone marrow edema in the distal pole of the scaphoid. There is dorsal subluxation of the proximal fourth and fifth metacarpals at the carpometacarpal joints. There is a probable tear of the lunotriquetral ligament at its lunate attachment. Finding is well-seen on series 7, image 13. The triangular fibrocartilage is intact. The flexor and extensor tendons are intact. No soft tissue mass or cyst is identified. No focal abnormality is identified of the median nerve. IMPRESSION: Areas of bone marrow edema without acute fracture. 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 Probable tear of the lunotriquetral ligament. Intact triangular fibrocartilage complex. Reviewed, Interpreted and Dictated by Bob Sadler III, MD Transcribed by Diane Verduzco Authenticated by Bob Sadler III, MD on 09/11/2021 09:55:13 AM [facility]
== END ==
PROVIDERS: PCP Nurse Practitioner Family; Visit Provider Orthopaedic Surgery
DX: S63.501A Unspecified sprain of right wrist, initial encounter (principal)
CPT/HCPCS: 73221

== ENCOUNTER 2021-09-23 13:00 | Outpatient (RCR) | payer BC, OTHER, SELFPAY ==
--- NOTE | 2021-09-05 08:59 | HMH.OTOPEV ---
OT Inpatient Evaluation Rehab OT Outpatient Eval Start: 09/05/21 08:47 Freq: Status: Active Protocol: Document 09/05/21 08:47 GERSONCHELO (Rec: 09/05/21 08:59 FLACA [id number]) Electronically Signed By Coreen Townsend OT 09/05/21 08:47 Outpatient Therapy Subjective History Subjective History 21-year-old male with right fifth metacarpal base avulsion fracture 6 weeks ago. Patient referred to skilled OP OT services for R hand therapy. Patient stated to have pain during AROM of wrist extension at this time. Patient is currently off work. Chief Complaint Pain,Weakness,Decreased Social Media Intern Strength Symptom Type Ache Symptoms Relieved By Rest/Positioning Symptoms Aggravated By Physical Activity Prior Functional Limitations None Current Functional Limitations Lifting Symptom Description Constant and Continuous Level of pain today (0-10) 3 Pain scale - at its best (0-10) 3 Pain scale - at its worst (0-10) 9 Wrist/Hand Eval Wrist Range of Motion Right Wrist Extension Active Range of Motion ( 50 degrees) Wrist Flexion Active Range of Motion ( 75 degrees) Wrist Radial Deviation Active Range of 18 Motion (degrees) Wrist Ulnar Deviation Active Range of 30 Motion (degrees) Forearm Supination Active Range of 85 Motion (degrees) Forearm Pronation Active Range of Motion 90 (degrees) Social Media Intern/Pinch Strength Right Social Media Intern Strength Measurement (lbs) 22 Left Social Media Intern Strength Measurement (lbs) 95 OT Outpatient Assessment Impairments Problems/Impairments Impaired Range of Motion, Impaired Strength,Subjective C /O Pain Prognosis Rehab Potential Good Clinical Impression Consistent with Diagnosis Yes Short Term Goals Number of Weeks 2 Increase Range of Motion Yes: AROM of R UE wrist ext: 60; RD: 19; SUP: 87 Increase Strength Yes: Improve R axminster weaver strength: 30# Decrease Subjective C/O Pain Yes: 7/10 pain at worst Patient to be Ind w/ HEP Yes: AAROM Patient to be Ind w/ Advanced HEP Yes: Strengthening Group Home Goals Number of Weeks 4 Increase Range of Motion Yes: AROM of R UE wrist ext: 70; RD: 20; SUP: 90 Increase Strength Yes: Improve R axminster weaver strength:
== END 2021-10-28 16:31 | disposition home or self-care (01) ==
LOC: OT 13:00
PROVIDERS: PCP Nurse Practitioner Family; Visit Provider Orthopaedic Surgery
DX: S62.346D Nondisplaced fracture of base of fifth metacarpal bone, right hand, subsequent encounter for fracture with routine healing (principal)
CPT/HCPCS: 97010; 97014; 97035; 97110; 97140; 97165; 97530; G0283

== ENCOUNTER → 2021-10-24 12:13 | Outpatient (CLI) | payer OTHER, SELFPAY ==
--- NOTE | 2021-10-24 12:17 | XR_ITS ---
FINAL REPORT CLINICAL HISTORY: CHEST PAIN..... UNSPECIFIED COMPARISON: 06/01/2020 FINDINGS: TWO-VIEW CHEST The heart size is normal. The mediastinum is normal. The lungs are clear. There is no pneumothorax. IMPRESSION: No acute cardiopulmonary process. Reviewed, Interpreted and Dictated by Gabo Vogel MD Transcribed by Diane Verduzco Authenticated by Gabo Vogel MD on 10/24/2021 01:27:18 PM [facility]
== END ==
PROVIDERS: PCP Nurse Practitioner Family; Visit Provider Nurse Practitioner
DX: R07.9 Chest pain, unspecified (principal)
CPT/HCPCS: 71046

== ENCOUNTER → 2021-10-31 14:00 | Outpatient (CLI) | payer OTHER, SELFPAY ==
[2021-10-31 15:17] LABS: Basophils # 0.1 K/mm3 (0-0.2); Basophils % 0.8 % (0.1-2.0); Eosinophils # 0.1 K/mm3 (0.0-0.4); Eosinophils % 1.6 % (0.1-12.0); Hematocrit 46.1 % (42.0-52.0); Hemoglobin 15.9 g/dL (14.1-18.0); Lymphocytes # 2.1 K/mm3 (0.7-4.5); Lymphocytes % 26.2 % (10-50); Mean Corpuscular HGB Conc 34.6 g/dL (31.8-35.4); Mean Corpuscular Hemoglobin 32.1 pg (27.0-31.2); Mean Corpuscular Volume 92.9 fl (80-94); Monocytes # 0.5 K/mm3 (0.1-1.0); Monocytes % 6.1 % (1.7-9.3); Neutrophils # 5.2 K/mm3 (1.8-7.8); Neutrophils % 65.3 % (37.0-80.0); Platelet Count 223 K/mm3 (142-424); Red Blood Count 4.96 M/mm3 (4.60-6.20)
[2021-10-31 17:00] LABS: Alanine Aminotransferase 55 U/L (12-78); Albumin Level 4.3 g/dl (3.5-5.0); Alkaline Phosphatase 102 U/L (38-126); Aspartate Amino Transferase 37 U/L (17-59); Bilirubin,Direct 0.1 mg/dl (0.0-0.4); Bilirubin,Indirect 0.4 mg/dL (0.0-0.9); Bilirubin,Total 0.5 mg/dl (0.2-1.3); Bilirubin,Unconjugated 0.5 mg/dL (0.0-1.1); Blood Urea Nitrogen 15 mg/dl (9-20); Carbon Dioxide 27 mmol/L (22.0-30.0); Chloride 105 mmol/L (98-107); Chol/HDL Ratio 4.1 (1-3.5); Cholesterol 167 mg/dl (140-200); Estimated Glomerular Filt Rate 76 ml/min (>60); GFR (African American) 92 ML/MIN (>60); Glucose 80 mg/dl (74-100); HDL Cholesterol 41 mg/dl (40-60); Magnesium 1.9 mg/dl (1.6-2.3); Sodium 140 mmol/L (136-145); Total Protein,Serum 6.6 g/dl (6.3-8.2); Triglycerides 154 mg/dl (30-150); VLDL Cholesterol 31 mg/dL (0-40)
[2021-10-31 17:10] LABS: Direct LDL Cholesterol 92.93 mg/dL (100-129)
== END ==
LOC: LAB 14:04
PROVIDERS: PCP Nurse Practitioner Family; Visit Provider Internal Medicine Cardiovascular Disease
DX: R00.2 Palpitations (principal); R07.89 Other chest pain; R06.83 Snoring; R40.0 Somnolence; R53.83 Other fatigue
CPT/HCPCS: 36415; 80048; 80061; 80076; 83735; 84439; 84443; 85025; 93270

== ENCOUNTER → 2021-11-14 12:36 | Outpatient (CLI) | payer BC, OTHER, SELFPAY | PROVIDERS: PCP Nurse Practitioner Family; Visit Provider Internal Medicine Cardiovascular Disease | DX: R07.89 Other chest pain (principal); R00.2 Palpitations; R06.83 Snoring; R40.0 Somnolence; R53.83 Other fatigue | CPT/HCPCS: 93306 ==

== ENCOUNTER 2022-06-02 11:50 | Emergency (ER) | payer BC, SELFPAY ==
[2022-06-02 13:30] VITALS: BP 119/71; PULSE 76; RESP 18; TEMP 36.8; O2SAT 99; BMI 32.5
--- NOTE | 2022-06-02 14:06 | EXP.UTC ---
Discharge Plan Disposition Patient Disposition: Home, Self-Care Condition: Good Prescriptions Prescriptions: New ondansetron 4 mg tablet,disintegrating 4 mg PO Q8H PRN (Reason: nausea and vomiting) Qty: 10 0RF Referrals Follow up/Referrals: Peace Henao [Primary Care Provider] - See instructions Activity Restrictions/Add. Instructions Additional Instructions/Restrictions: Drink extra fluids with and between meals. If you have difficulty drinking, try very small amounts of water or suck on ice chips. ? Avoid fruit juices, as these do not replace minerals and can actually increase diarrhea. ? Children and adults can use sports drinks to replenish electrolytes. Younger children and infants should use products formulated for children, like oral rehydration solutions. ? Eat food in small amounts and let your stomach recover. ? Get lots of rest. You may feel tired or weak. ? No greasy or fried foods for the next 24-48 hours BRAT diet Bananas Rice Apples and Varina ? Make sure to drink plenty of liquids ? Return if needed ? Straight to ER if any life threatening symptoms ? Zofran as prescribed ? Follow up with family doctor in the next 48-72 hours if no improvement or any worsening of symptoms Clinical Impressions Clinical Impression: Viral syndrome Stand Alone Forms Stand Alone Forms: Work/School Release Instructions Patient Instructions: DI for Viral Syndrome, DI for Nausea -- Adult, Nausea and Vomiting-Adult Discharge ED Provider: Maritza Dougherty [facility] General Stated complaint: vomiting, diarrhea, cough Mode of Arrival: Ambulatory Source of Information: Patient Limitations: No Limitations Time Seen by Provider: 06/02/22 14:06 Description of Symptoms (Recalled from Triage Doc. by RN): PATIENT C/O VOMITING AND DIARRHEA X 2 DAYS HEENT Symptoms (Recalled from RN notes): No Resp Symptoms (Recalled from RN notes): No Skin Symptoms (Recalled from RN notes): No MS Symptoms (Recalled from RN notes): No Functional Status (Recalled from RN notes): WNL History of Present Illness Provider Complaint: Patient states that he has been having N/V/D for 2 days States that he is feeling a little better today but having some nausea States that he hasnt had any fever or chills and feels like he may have had a virus Related Data Previous Rx's Medication Instructions Recorded ondansetron 4 mg disintegrating 4 mg PO Q8H PRN nausea and 06/02/22 tablet vomiting #10 tabs Allergies Allergy/AdvReac Type Severity Reaction Status Date / Time No Known Allergies Allergy Verified 10/31/21 13:14 Worker's Comp Is this a Worker's Comp case?: No [facility] Disclaimer: The information contained in this section may have been updated after the patient was seen, as this information can be updated by other users. Medical History (Updated 06/02/22 @ 14:13 by Maritza Dougherty APRN) Depression Social History (Updated 06/02/22 @ 13:48 by Ofe Elizalde RN) Smoking Status: Never smoker alcohol intake: current substance use type: denies use current occupational status: employed Travel in the last 8 weeks: None household members: family housing: house current occupation: [employer] caffeine: Yes ROS Obtained: Yes All systems reviewed & no additional complaints except as documented and Yes Systems reviewed as appropriate & no additional complaints except as documented Constitutional Constitutional: Reports system reviewed and no additional complaints, except as documented, Reports as per HPI, Denies body ache, Denies chills and Denies fever(s) ENT Ears, Nose, Mouth, and Throat: Reports system reviewed and no additional complaints, except as documented and Reports as per HPI Cardiovascular Cardiovascular: Reports system reviewed and no additional complaints, except as documented and Reports as per HPI Respiratory Respiratory: Reports sy
[2022-06-02 14:18] VITALS: BP 119/71; PULSE 76; RESP 18; TEMP 36.8
== END 2022-06-02 14:19 | disposition home or self-care (01) ==
PROVIDERS: Emergency Provider Nurse Practitioner; PCP Nurse Practitioner Family
DX: R11.2 Nausea with vomiting, unspecified (principal); R19.7 Diarrhea, unspecified; B34.9 Viral infection, unspecified; R05.9 Cough, unspecified; F32.A Depression, unspecified; Z79.899 Other long term (current) drug therapy
CPT/HCPCS: 99212; G0463